=== PATIENT | female | born 1935 | race Caucasian/White ===

== ENCOUNTER 2017-02-10 20:45 | Emergency (ER) | payer MEDICARE, BC ==
--- NOTE | 2017-02-11 05:54 | ER ---
ADMIT: 02/10/2017 RM/LOC: ER [facility] MR#: [id number] [id number] MARY SPARKS [address] [place] [id number] Emergency Room Report SEX: F AGE: 81 : 1935 DATE: 02/10/2017 The patient is an 81-year-old female, complaining of right leg laceration when she dropped container of ice-cream on her mario. Exam remarkable for nontoxic, afebrile female, 8 cm deep skin tear noted anterior lower leg. Wound was anesthetized, cleansed with Hibiclens, irrigated, prepped with Betadine, closed with eight 4-0 Prolene modified vertical mattress, bacitracin, and dressing. Tdap updated. Follow up Dr. Bridges in 7 to 10 days for suture removal. Dorian Vasquez MD/ khadra JOB #: [id number] CC: Dorian Vasquez MD, Attending Physician Sergey Bridges MD, Family Physician Sergey Bridges MD
== END 2017-02-11 00:12 | disposition home or self-care (01) ==
LOC: ER 20:45
PROC: 0YQHXZZ Repair Right Lower Leg, External Approach (ICD-10-PCS; principal; 2017-02-10)
DX: S81.811A Laceration without foreign body, right lower leg, initial encounter (principal); I10 Essential (primary) hypertension; Z88.5 Allergy status to narcotic agent; Z23 Encounter for immunization; W22.8XXA Striking against or struck by other objects, initial encounter